=== PATIENT | female | born 1950 | race Asian ===

== ENCOUNTER 2017-07-01 14:47 | Inpatient (IN) | payer OTHER ==
[2017-07-01 19:13] LABS: ADD MAN DIFF? NO
[2017-07-01 19:18] LABS: BASOPHIL # 0.1 10^3/ul (0.0-0.1); BASOPHILS % 0.7 % (0.0-2.0); EOSINOPHILS # 0.2 10^3/ul (0.0-0.5); EOSINOPHILS % 2.3 % (0.0-7.0); HEMATOCRIT 38.8 % (37.0-47.0); HEMOGLOBIN 12.8 g/dl (12.0-16.0); LYMPHOCYTES # 1.9 10^3/ul (0.8-2.9); LYMPHOCYTES % 25.5 % (15.0-51.0); MEAN CORPUSCULAR HEMOGLOBIN 29.2 pg (29.0-33.0); MEAN CORPUSCULAR VOLUME 88.4 fl (82.0-101.0); MEAN PLATELET VOLUME 9.9 fl (7.4-10.4); MONOCYTE # 0.5 10^3/ul (0.3-0.9); MONOCYTES % 6.9 % (0.0-11.0); NEUTROPHIL # 4.7 10^3/ul (1.6-7.5); NEUTROPHILS % 64.3 % (39.0-77.0); PLATELET COUNT 244 10^3/UL (140-415); RED BLOOD COUNT 4.39 10^6/ul (4.20-5.40); RED CELL DISTRIBUTION WIDTH 13.6 % (11.5-14.5)
[2017-07-01 19:18] LABS: WHITE BLOOD COUNT 7.4 10^3/ul (4.8-10.8)
[2017-07-01 19:34] LABS: INR 0.98; PROTIME 13.1 Sec (11.9-14.9)
[2017-07-01 19:35] LABS: ALANINE AMINOTRANSFERASE 33 IU/L (13-69); ALBUMIN 4.1 g/dl (3.3-4.9); ALBUMIN/GLOBULIN RATIO 1.28; ALKALINE PHOSPHATASE 76 IU/L (42-121); ANION GAP 14 (8-16); ASPARTATE AMINO TRANSFERASE 23 IU/L (15-46); BILIRUBIN,INDIRECT 0.2 mg/dl (0-1.1); BILIRUBIN,TOTAL 0.2 mg/dl (0.2-1.3); BLOOD UREA NITROGEN 19 mg/dl (7-20); CARBON DIOXIDE 27 mmol/L (21-31); CHLORIDE 105 mmol/L (97-110); CREATININE 0.75 mg/dl (0.44-1.00); GLUCOSE 108 mg/dl (70-220); PARTIAL THROMBOPLASTIN TIME 28.6 Sec (25.0-35.0); POTASSIUM 4.3 mmol/L (3.5-5.1); SODIUM 142 mmol/L (135-144); TOTAL PROTEIN 7.3 g/dl (6.1-8.1)
[2017-07-01] MEDS ORDERED: HEPARIN 1000 UNITS/ML 10 ML INJ IV ×2 (20:00)
[2017-07-01] MEDS: HEPARIN 1000 UNITS/ML 10 ML INJ IV (20:35)
[2017-07-01] MEDS: HEPARIN 25000 UNITS/250 ML 250 ML IV (20:50)
[2017-07-01 23:46] LABS: PROTIME 14.4 Sec (11.9-14.9); PT RATIO 1.1
[2017-07-02 00:16] LABS: PARTIAL THROMBOPLASTIN TIME > 180.0 Sec (25.0-35.0)
[2017-07-02] MEDS ORDERED: ONDANSETRON 4 MG INJ IV (00:30)
[2017-07-02] MEDS ORDERED: ACETAMINOPHEN 325 MG TAB PO ×2 (00:30→01:00)
[2017-07-02] MEDS ORDERED: NACL 0.9% 3 ML SYG IV (01:00)
[2017-07-02] MEDS ORDERED: ONDANSETRON 4 MG TAB PO (01:00)
[2017-07-02] MEDS ORDERED: HEPARIN 1000 UNITS/ML 10 ML INJ IV ×3 (01:00→07:00)
[2017-07-02] MEDS ORDERED: DOCUSATE SODIUM 100 MG CAP PO (01:00)
[2017-07-02] MEDS ORDERED: HYDROCODONE/APAP (5/325) TAB PO (01:00)
[2017-07-02] MEDS ORDERED: BISACODYL (EC) 5 MG TAB PO (01:00)
[2017-07-02 01:57] LABS: ADD MAN DIFF? NO
[2017-07-02 01:58] LABS: WHITE BLOOD COUNT 6.3 10^3/ul (4.8-10.8)
[2017-07-02 01:58] LABS: BASOPHIL # 0.1 10^3/ul (0.0-0.1); BASOPHILS % 0.8 % (0.0-2.0); EOSINOPHILS # 0.2 10^3/ul (0.0-0.5); HEMATOCRIT 35.2 % (37.0-47.0); HEMOGLOBIN 11.6 g/dl (12.0-16.0); LYMPHOCYTES # 2.3 10^3/ul (0.8-2.9); LYMPHOCYTES % 37.1 % (15.0-51.0); MEAN CORPUSCULAR HEMOGLOBIN 29.1 pg (29.0-33.0); MEAN CORPUSCULAR VOLUME 88.4 fl (82.0-101.0); MEAN PLATELET VOLUME 9.2 fl (7.4-10.4); MONOCYTE # 0.5 10^3/ul (0.3-0.9); MONOCYTES % 8.3 % (0.0-11.0); NEUTROPHIL # 3.2 10^3/ul (1.6-7.5); NEUTROPHILS % 50.5 % (39.0-77.0); PLATELET COUNT 201 10^3/UL (140-415); RED BLOOD COUNT 3.98 10^6/ul (4.20-5.40); RED CELL DISTRIBUTION WIDTH 13.5 % (11.5-14.5)
[2017-07-02 02:20] LABS: INR 1.06; PROTIME 13.9 Sec (11.9-14.9); PT RATIO 1.1
[2017-07-02 02:29] LABS: PARTIAL THROMBOPLASTIN TIME 88.6 Sec (25.0-35.0)
[2017-07-02] MEDS: HEPARIN 25000 UNITS/250 ML 250 ML IV ×2 (02:48→12:30)
[2017-07-02] MEDS: AMLODIPINE 10 MG TAB PO (09:22)
[2017-07-02] MEDS: LOSARTAN 50 MG TAB PO (09:22)
[2017-07-02 10:15] LABS: INR 1.05; PROTIME 13.8 Sec (11.9-14.9); PT RATIO 1.1
[2017-07-02] MEDS: LATANOPROST 0.005% 2.5 ML OPH BOTH EYES (21:39)
[2017-07-03] MEDS: HEPARIN 25000 UNITS/250 ML 250 ML IV (04:23)
[2017-07-03 05:31] LABS: ADD MAN DIFF? NO
[2017-07-03 05:43] LABS: BASOPHIL # 0.1 10^3/ul (0.0-0.1); BASOPHILS % 1.1 % (0.0-2.0); EOSINOPHILS # 0.2 10^3/ul (0.0-0.5); EOSINOPHILS % 3.4 % (0.0-7.0); HEMATOCRIT 37.7 % (37.0-47.0); HEMOGLOBIN 12.4 g/dl (12.0-16.0); LYMPHOCYTES # 2.3 10^3/ul (0.8-2.9); LYMPHOCYTES % 40.4 % (15.0-51.0); MEAN CORPUSCULAR HEMOGLOBIN 29.2 pg (29.0-33.0); MEAN CORPUSCULAR HGB CONC 32.9 g/dl (32.0-37.0); MEAN CORPUSCULAR VOLUME 88.7 fl (82.0-101.0); MONOCYTE # 0.5 10^3/ul (0.3-0.9); MONOCYTES % 8.3 % (0.0-11.0); NEUTROPHIL # 2.6 10^3/ul (1.6-7.5); NEUTROPHILS % 46.4 % (39.0-77.0); PLATELET COUNT 223 10^3/UL (140-415); RED BLOOD COUNT 4.25 10^6/ul (4.20-5.40); RED CELL DISTRIBUTION WIDTH 13.4 % (11.5-14.5)
[2017-07-03 05:43] LABS: WHITE BLOOD COUNT 5.7 10^3/ul (4.8-10.8)
[2017-07-03 06:19] LABS: PARTIAL THROMBOPLASTIN TIME 79.5 Sec (25.0-35.0)
[2017-07-03 06:47] LABS: ALANINE AMINOTRANSFERASE 33 IU/L (13-69); ALBUMIN 3.8 g/dl (3.3-4.9); ALBUMIN/GLOBULIN RATIO 1.35; ALKALINE PHOSPHATASE 74 IU/L (42-121); ANION GAP 16 (8-16); ASPARTATE AMINO TRANSFERASE 21 IU/L (15-46); BILIRUBIN,INDIRECT 0.2 mg/dl (0-1.1); BILIRUBIN,TOTAL 0.2 mg/dl (0.2-1.3); BLOOD UREA NITROGEN 15 mg/dl (7-20); CALCIUM 9.2 mg/dl (8.4-10.2); CARBON DIOXIDE 27 mmol/L (21-31); CHLORIDE 105 mmol/L (97-110); CHOL/HDL RATIO 3.3 RATIO; CHOLESTEROL 172 mg/dl (100-200); CREATININE 0.76 mg/dl (0.44-1.00); GLUCOSE 113 mg/dl (70-220); HDL CHOLESTEROL 51 mg/dl (35-98); LDL CHOLESTEROL,CALCULATED 99 mg/dl; POTASSIUM 3.6 mmol/L (3.5-5.1); SODIUM 144 mmol/L (135-144); TOTAL PROTEIN 6.6 g/dl (6.1-8.1); TRIGLYCERIDES 112 mg/dl (0-149)
[2017-07-03 07:41] LABS: HEMOGLOBIN A1C 5.9 % (0-5.9)
[2017-07-03] MEDS: LOSARTAN 50 MG TAB PO (08:17)
[2017-07-03] MEDS: AMLODIPINE 10 MG TAB PO (08:18)
[2017-07-03 11:06] LABS: INR 1.03; PROTIME 13.6 Sec (11.9-14.9); PT RATIO 1.1
== END 2017-07-03 15:10 | disposition home or self-care (01) | DRG 301 ==
LOC: MS1 07-02 00:41 → E/R 14:47
DX: I82.532 Chronic embolism and thrombosis of left popliteal vein (principal); E66.01 Morbid (severe) obesity due to excess calories; I10 Essential (primary) hypertension; E11.9 Type 2 diabetes mellitus without complications; Z79.01 Long term (current) use of anticoagulants; Z68.37 Body mass index [BMI] 37.0-37.9, adult
CPT/HCPCS: 80053; 80061; 83036; 83735; 84443; 85025; 85610; 85730; 93971; 96374; 96375; 99285-25

== ENCOUNTER 2018-12-02 13:17 | Emergency (ER) | payer OTHER | END 2018-12-02 18:09 | disposition home or self-care (01) | LOC: FTE 13:17 | DX: S00.83XA Contusion of other part of head, initial encounter (principal); I10 Essential (primary) hypertension; W01.198A Fall on same level from slipping, tripping and stumbling with subsequent striking against other object, initial encounter; Y92.9 Unspecified place or not applicable; Z79.01 Long term (current) use of anticoagulants; Z79.84 Long term (current) use of oral hypoglycemic drugs | CPT/HCPCS: 70450; 99284-25 ==